=== PATIENT | male | born 1960 | race Caucasian/White ===

== ENCOUNTER 2016-07-22 09:00 | Outpatient (CLI) | payer OTHER | END 2016-07-22 09:01 | disposition home or self-care (01) | DX: Z00.00 Encounter for general adult medical examination without abnormal findings (principal); I10 Essential (primary) hypertension; E74.39 Other disorders of intestinal carbohydrate absorption; E78.5 Hyperlipidemia, unspecified; Z12.5 Encounter for screening for malignant neoplasm of prostate ==

== ENCOUNTER 2017-08-09 08:23 | Outpatient (CLI) | payer BC ==
[2017-08-09 10:27] LABS: BASOPHILS # (AUTO) 0.1 10^3/uL (0.0-0.1); BASOPHILS % (AUTO) 0.9 %; EOSINOPHILS # (AUTO) 0.2 10^3/uL (0.0-0.7); EOSINOPHILS % (AUTO) 2.6 %; HGB - HEMOGLOBIN 14.9 g/dL (14.0-18.0); LYMPHOCYTES # (AUTO) 1.7 10^3/uL (1.5-3.5); LYMPHOCYTES % (AUTO) 29.8 %; MEAN CORPUSCULAR HEMOGLOBIN 28.5 pg (27.0-31.0); MEAN CORPUSCULAR HGB CONC 33.5 g/dL (32.0-36.0); MONOCYTES # (AUTO) 0.5 10^3/uL (0.0-1.0); MONOCYTES % (AUTO) 8.6 %; NEUTROPHILS # (AUTO) 3.3 10^3/uL (1.5-6.6); NEUTROPHILS % (AUTO) 58.1 %; PLT - PLATELET COUNT 242 10^3/uL (130-450); RED BLOOD COUNT 5.24 10^6/uL (4.70-6.10); RED CELL DISTRIBUTION WIDTH 13.8 % (12.0-15.0); WHITE BLOOD COUNT 5.7 x10^3/uL (4.8-10.8)
[2017-08-09 10:53] LABS: ALBUMIN 4.4 g/dL (3.2-5.5); ALBUMIN/GLOBULIN RATIO 1.6 (1.0-2.2); ALKALINE PHOSPHATASE 86 IU/L (42-121); ALT ALANINE AMINOTRANSFERASE 31 IU/L (10-60); AST ASPARTATE AMINOTRANSFERASE 29 IU/L (10-42); BILIRUBIN,TOTAL 0.5 mg/dL (0.2-1.0); BUN - BLOOD UREA NITROGEN 14 mg/dL (6-20); CALCIUM 9.3 mg/dL (8.5-10.3); CARBON DIOXIDE - CO2 27 mmol/L (21-32); CHLORIDE 102 mmol/L (101-111); CHOL/HDL RATIO 5.3 (<5.0); CHOLESTEROL 191 mg/dL; CREATININE 0.8 mg/dL (0.6-1.2); GFR - MDRD 100 (>89); GLUCOSE 171 mg/dL (70-100); HDL CHOLESTEROL 36 mg/dL; LDL CHOLESTEROL,CALCULATED 126 mg/dL; LDL/HDL RATIO 3.5 (<3.6); SODIUM 135 mmol/L (135-145); TOTAL PROTEIN 7.1 g/dL (6.7-8.2); VLDL CHOLESTEROL 29 mg/dL
== END 2017-08-09 08:24 | disposition home or self-care (01) ==
LOC: LAB.F 08:23
PROVIDERS: ATTEND Family Medicine
DX: E74.39 Other disorders of intestinal carbohydrate absorption (principal); E78.5 Hyperlipidemia, unspecified; F90.0 Attention-deficit hyperactivity disorder, predominantly inattentive type; I10 Essential (primary) hypertension; R00.0 Tachycardia, unspecified
CPT/HCPCS: 36415; 80053; 80061; 83721; 84443; 85025

== ENCOUNTER 2017-10-05 08:28 | Outpatient (CLI) | payer BC ==
[2017-10-05 18:36] LABS: HB2 TOTAL 15.4 g/dL; HEMOGLOBIN A1C 0.73 g/dL; HEMOGLOBIN A1C % 6.5 % (4.6-6.2)
== END 2017-10-05 08:29 | disposition home or self-care (01) ==
LOC: LAB.F 08:28
PROVIDERS: ATTEND Family Medicine
DX: E74.39 Other disorders of intestinal carbohydrate absorption (principal); Z12.5 Encounter for screening for malignant neoplasm of prostate
CPT/HCPCS: 36415; 83036; 84153

== ENCOUNTER 2017-11-14 15:22 | Outpatient (CLI) | payer BC | END 2017-11-14 15:23 | disposition home or self-care (01) | LOC: SC 15:22 | PROVIDERS: ATTEND Internal Medicine Pulmonary Disease | DX: G47.33 Obstructive sleep apnea (adult) (pediatric) (principal) | CPT/HCPCS: 99203; 99212 ==

== ENCOUNTER 2018-01-12 17:05 | Outpatient (CLI) | payer BC | END 2018-01-12 23:59 | disposition home or self-care (01) | LOC: RT 17:05 | PROVIDERS: ATTEND Internal Medicine Cardiovascular Disease | DX: R01.1 Cardiac murmur, unspecified (principal) | CPT/HCPCS: 93005 ==

== ENCOUNTER 2018-01-17 08:15 | Outpatient (CLI) | payer BC | END 2018-01-17 08:16 | disposition home or self-care (01) | LOC: DI 08:15 | PROVIDERS: ATTEND Nurse Practitioner Family | DX: R01.1 Cardiac murmur, unspecified (principal) | CPT/HCPCS: 93306 ==

== ENCOUNTER 2018-10-10 20:48 | Emergency (ER) | payer BC ==
--- NOTE | 2018-10-10 21:02 | ED Physician Documentation ---
PD HPI UPPER EXT INJURY - Stated complaint Stated Complaint: GLF/LT ARM PX - Chief complaint Chief Complaint: Trauma Ext - History obtained from History obtained from: Patient - History of Present Illness Location: Left, Elbow Type of injury: Fall Where injury occurred: Home Timing - onset: How many days ago (3) Associated symptoms: Weakness, Swelling, Discolored Contributing factors: No: Anticoagulated, Prior ortho surgery, Prosthetic joint, Work related Similar symptoms before: Has not had sx before Recently seen: Not recently seen - Additonal information Additional information: fell 3 days ago while working on taking beams down on his property; lost balance and fell, not certain what he struck his LUE on, possibly on some of the beams. He had left elbow pain and swelling, bruising. These symptoms/sign have improved. He does note mild weakness with certain movements (such as using his steering wheel, putting on his seat belt). He says he came to ED tonight not because of worsening symptoms but "this is the soonest I could make it here" Review of Systems Musculoskeletal: reports: Extremity pain, Joint pain, Extremity swelling, Joint swelling. denies: Neck pain, Back pain Neurologic: denies: Numbness PD PAST MEDICAL HISTORY - Past Medical History Past Medical History: Yes - Allergies Allergies/Adverse Reactions: Allergies Allergy/AdvReac Type Severity Reaction Status Date / Time Sulfa (Sulfonamide Allergy Hives Verified 10/10/18 20:53 Antibiotics) - Living Situation Living Arrangement: reports: At home - Social History Does the pt smoke?: No PD ED PE NORMAL - Vitals Vital signs reviewed: Yes - General General: Alert and oriented X 3, No acute distress, Well developed/nourished - Neuro Neuro: No motor deficit, No sensory deficit PD ED PE EXPANDED - Extremities Extremities: Other (mild TTP left elbow, lateral aspect. FROM left elbow, wrist, shoulder. LTS intact in LUE, including FA, wrist, hand, and fingers. Strong left RA pulse) ANTWAN UE/Hands Visual: 1 - bruising, swelling Results - Vitals Vitals: Vital Signs - 24 hr 10/10/18 10/10/18 20:54 22:32 Temperature 37.0 C Heart Rate 84 62 Respiratory 16 18 Rate Blood Pressure 148/68 H 140/71 H O2 Saturation 96 97 Oxygen O2 Source Room air - Rads (name of study) left elbow xrays Radiology: Prelim report reviewed, See rad report PD MEDICAL DECISION MAKING - ED course Complexity details: reviewed results, re-evaluated patient, considered differential, d/w patient Departure - Departure Disposition: Home, Self Care Clinical Impression: Elbow injury Condition: Good Health Concerns: left elbow injury Plan of Treatment: xrays performed in emergency department. Rest, follow up as needed Care Goals: resolution of symptoms / signs Assessment: see diagnosis Instructions: ED Contusion Elbow, ED Compartment Syndrome At Risk For Follow-Up: Fernando Barber MD [Provider Admit Priv/Credential] - Discharge Date/Time: 10/10/18 22:43
--- NOTE | 2018-10-10 21:45 | XRAY Report ---
Reason: fall, left elbow pain Procedure Date: 10/10/2018 Accession Number: [id number] / [id number] Procedure: XR - Elbow 3 View LT CPT Code: FULL RESULT: EXAM: LEFT ELBOW RADIOGRAPHY EXAM DATE: 10/10/2018 09:37 PM. CLINICAL HISTORY: Fall, left elbow pain. COMPARISON: None. TECHNIQUE: 3 views. FINDINGS: Bones: Normal. No fractures or bone lesions. There is a traction enthesophyte on the olecranon at the attachment of the quadriceps tendon. There are a few ossifications within the distal quadriceps region. Joints: Normal. No effusion. No subluxation. Soft Tissues: There appears to be some soft tissue swelling along the posterior aspect of the lower aspect upper arm. IMPRESSION: 1. No evidence for fractures or dislocations. RADIA
[2018-10-10 22:33] VITALS: BP 140/71
== END 2018-10-10 22:43 | disposition home or self-care (01) ==
LOC: ED 20:48
DX: S50.02XA Contusion of left elbow, initial encounter (principal); W01.198A Fall on same level from slipping, tripping and stumbling with subsequent striking against other object, initial encounter; Y93.89 Activity, other specified; Y92.009 Unspecified place in unspecified non-institutional (private) residence as the place of occurrence of the external cause
CPT/HCPCS: 99282; 99283

== ENCOUNTER 2018-11-10 07:34 | Outpatient (CLI) | payer BC ==
[2018-11-10 07:52] LABS: BASOPHILS % (AUTO) 0.6 %; EOSINOPHILS # (AUTO) 0.2 10^3/uL (0.0-0.7); EOSINOPHILS % (AUTO) 3.8 %; HGB - HEMOGLOBIN 13.6 g/dL (14.0-18.0); LYMPHOCYTES # (AUTO) 1.6 10^3/uL (1.5-3.5); MEAN CORPUSCULAR HEMOGLOBIN 28.5 pg (27.0-31.0); MEAN CORPUSCULAR HGB CONC 31.6 g/dL (32.0-36.0); MEAN PLATELET VOLUME 8.8 fL (7.4-11.4); MONOCYTES # (AUTO) 0.5 10^3/uL (0.0-1.0); MONOCYTES % (AUTO) 10.2 %; NEUTROPHILS # (AUTO) 2.4 10^3/uL (1.5-6.6); PLT - PLATELET COUNT 239 10^3/uL (130-450); RED BLOOD COUNT 4.78 10^6/uL (4.70-6.10); WHITE BLOOD COUNT 4.7 x10^3/uL (4.8-10.8)
[2018-11-10 08:35] LABS: ALBUMIN/GLOBULIN RATIO 1.4 (1.0-2.2); BILIRUBIN,TOTAL 0.6 mg/dL (0.2-1.0); CALCIUM 9.2 mg/dL (8.5-10.3); CREATININE 0.7 mg/dL (0.6-1.2); TOTAL PROTEIN 6.9 g/dL (6.7-8.2)
[2018-11-10 09:06] LABS: HB2 TOTAL 14.2 g/dL; HEMOGLOBIN A1C 0.7 g/dL; HEMOGLOBIN A1C % 6.7 % (4.6-6.2)
== END 2018-11-10 07:35 | disposition home or self-care (01) ==
LOC: RT 07:34
PROVIDERS: ATTEND Orthopaedic Surgery Sports Medicine
DX: Z01.818 Encounter for other preprocedural examination (principal); S46.312D Strain of muscle, fascia and tendon of triceps, left arm, subsequent encounter; S46.302D Unspecified injury of muscle, fascia and tendon of triceps, left arm, subsequent encounter; S46.322D Laceration of muscle, fascia and tendon of triceps, left arm, subsequent encounter
CPT/HCPCS: 36415; 80053; 83036; 85025; 93005

== ENCOUNTER 2018-11-15 | Day surgery (SDC) | payer BC | END 2018-11-15 07:57 | disposition home or self-care (01) | PROC: 0LM40ZZ Reattachment of Left Upper Arm Tendon, Open Approach (ICD-10-PCS; principal; 2018-11-15) | DX: S46.392A Other injury of muscle, fascia and tendon of triceps, left arm, initial encounter (principal); X58.XXXA Exposure to other specified factors, initial encounter; I10 Essential (primary) hypertension; E11.9 Type 2 diabetes mellitus without complications; G47.30 Sleep apnea, unspecified; R01.1 Cardiac murmur, unspecified; Z84.89 Family history of other specified conditions; E66.3 Overweight; Z68.34 Body mass index [BMI] 34.0-34.9, adult; E78.00 Pure hypercholesterolemia, unspecified | CPT/HCPCS: 24342; A9270; C1713; J0690; J7120 ==

== ENCOUNTER 2018-12-26 07:51 | Outpatient (CLI) | payer BC ==
--- NOTE | 2018-12-26 17:22 | MRI Report ---
Reason: MASS OF RIGHT KNEE JOINT Procedure Date: 12/26/2018 Accession Number: [id number] / [id number] Procedure: MRI - Knee RT W/O CPT Code: FULL RESULT: EXAM: RIGHT KNEE MRI WITHOUT CONTRAST EXAM DATE: 12/26/2018 08:26 AM. CLINICAL HISTORY: Mass of right knee joint. No prior surgery. Knee pain. COMPARISON: KNEE 3 VIEW RT 12/11/2018 3:39 PM. TECHNIQUE: Multiplanar, multisequence T1-weighted and fluid-sensitive sequences of the knee without contrast. Other: None. FINDINGS: Cruciate ligaments: The anterior and posterior cruciate ligaments appear intact. Medial meniscus: Blunting at the free margin of the body. Possible tiny horizontal tear at the body-posterior horn junction. Large lobulated cyst located superficial to the medial collateral ligament measures up to 4.3 x 1.7 cm transverse and 5.2 cm craniocaudad. Suspicious for meniscal cyst. This could also represent ganglion cyst associated with distal semimembranosus. Collateral ligaments: The medial and fibular collateral ligaments appear intact. Bones and articular surfaces: Mild cartilage thinning, irregularity and fissuring in all compartments, most pronounced in the medial and patellofemoral compartments. Focal cartilage fissuring and partial-thickness defect at the weightbearing lateral femoral condyle. No significant joint effusion. Extensor mechanism: The patellar tendon and quadriceps insertion appear intact. IMPRESSION: No MRI abnormalities in the knee. RADIA
== END 2018-12-26 07:52 | disposition home or self-care (01) ==
LOC: DI 07:51
PROVIDERS: ATTEND Orthopaedic Surgery Sports Medicine
DX: M25.861 Other specified joint disorders, right knee (principal)

== ENCOUNTER 2019-04-24 08:00 | Outpatient (CLI) | payer BC, OTHER ==
[2019-04-24 17:43] LABS: ALBUMIN 4.2 g/dL (3.2-5.5); ALBUMIN/GLOBULIN RATIO 1.6 (1.0-2.2); ALKALINE PHOSPHATASE 85 IU/L (42-121); ALT ALANINE AMINOTRANSFERASE 29 IU/L (10-60); AST ASPARTATE AMINOTRANSFERASE 28 IU/L (10-42); BILIRUBIN,TOTAL 0.6 mg/dL (0.2-1.0); BUN - BLOOD UREA NITROGEN 15 mg/dL (6-20); CALCIUM 8.9 mg/dL (8.5-10.3); CARBON DIOXIDE - CO2 26 mmol/L (21-32); CHLORIDE 102 mmol/L (101-111); CHOL/HDL RATIO 5.3 (<5.0); CHOLESTEROL 184 mg/dL; CREATININE 0.8 mg/dL (0.6-1.2); GFR - MDRD 100 (>89); GLUCOSE 152 mg/dL (70-100); HDL CHOLESTEROL 35 mg/dL; LDL CHOLESTEROL,CALCULATED 81 mg/dL; LDL/HDL RATIO 2.3 (<3.6); SODIUM 136 mmol/L (135-145); TOTAL PROTEIN 6.8 g/dL (6.7-8.2); VLDL CHOLESTEROL 68 mg/dL
[2019-04-24 18:19] LABS: HB2 TOTAL 14.4 g/dL; HEMOGLOBIN A1C 0.85 g/dL; HEMOGLOBIN A1C % 7.6 % (4.6-6.2)
== END 2019-04-24 23:59 | disposition home or self-care (01) ==
LOC: LAB.S 08:00
PROVIDERS: ATTEND Internal Medicine
DX: Z12.5 Encounter for screening for malignant neoplasm of prostate (principal); E78.5 Hyperlipidemia, unspecified; E11.9 Type 2 diabetes mellitus without complications
CPT/HCPCS: 36415; 80053; 80061; 83036; 83721; 84153

== ENCOUNTER 2020-01-24 10:48 | Outpatient (CLI) | payer OTHER ==
--- NOTE | 2020-01-24 17:52 | XRAY Report ---
PROCEDURE: Lumbar Spine 2 View INDICATIONS: BACK PAIN TECHNIQUE: 3 views of the lumbar spine were acquired. COMPARISON: None. FINDINGS: Bones: 5 [id number] vertebrae are present. There is a mild levoscoliosis of the thoracolumbar spine centered at L3. There is minimal retrolisthesis at L1-L2 and L2-L3. Mild right-sided disc space narrowing is demonstrated in the mid lumbar spine. There is also mild facet arthropathy with a left- sided predominance in the lower lumbar spine. No vertebral body compression fractures. No suspicious bony lesions. Soft tissues: Overlying bowel gas pattern is normal. No suspicious soft tissue calcifications. IMPRESSION: 1. Levoscoliosis of the thoracolumbar spine centered at L3. 2. Mild degenerative disc disease in the mid lumbar spine as well as mild facet arthropathy in the lo wer lumbar spine. 3. Minimal retrolisthesis in the upper lumbar spine. Reviewed by: Edd Erickson MD on 01/24/2020 4:50 PM ELLIS Approved by: Edd Erickson MD on 01/24/2020 4:50 PM ELLIS Station ID: [id number]
== END 2020-01-24 10:49 | disposition home or self-care (01) ==
LOC: DI.S 10:48
PROVIDERS: ATTEND Internal Medicine
DX: M51.36 Other intervertebral disc degeneration, lumbar region (principal); M47.816 Spondylosis without myelopathy or radiculopathy, lumbar region; M43.16 Spondylolisthesis, lumbar region
CPT/HCPCS: 72100

== ENCOUNTER 2020-06-17 08:34 | Outpatient (CLI) | payer OTHER ==
[2020-06-17 15:02] LABS: BASOPHILS % (AUTO) 0.5 %; EOSINOPHILS # (AUTO) 0.1 10^3/uL (0.0-0.7); EOSINOPHILS % (AUTO) 0.8 %; HCT - HEMATOCRIT 47.4 % (42.0-52.0); HGB - HEMOGLOBIN 14.9 g/dL (14.0-18.0); LYMPHOCYTES # (AUTO) 0.4 10^3/uL (1.5-3.5); LYMPHOCYTES % (AUTO) 7.1 %; MEAN CORPUSCULAR HEMOGLOBIN 29.1 pg (27.0-31.0); MEAN CORPUSCULAR HGB CONC 31.4 g/dL (32.0-36.0); MEAN CORPUSCULAR VOLUME 92.6 fL (80.0-94.0); MEAN PLATELET VOLUME 9.4 fL (7.4-11.4); MONOCYTES # (AUTO) 0.5 10^3/uL (0.0-1.0); MONOCYTES % (AUTO) 8.9 %; NEUTROPHILS % (AUTO) 82.4 %; PLT - PLATELET COUNT 290 10^3/uL (130-450); RED BLOOD COUNT 5.12 10^6/uL (4.70-6.10); RED CELL DISTRIBUTION WIDTH 13.2 % (12.0-15.0); WHITE BLOOD COUNT 6.1 x10^3/uL (4.8-10.8)
[2020-06-17 15:31] LABS: ALBUMIN 4.6 g/dL (3.2-5.5); ALBUMIN/GLOBULIN RATIO 1.8 (1.0-2.2); ALKALINE PHOSPHATASE 66 IU/L (42-121); ALT ALANINE AMINOTRANSFERASE 37 IU/L (10-60); AST ASPARTATE AMINOTRANSFERASE 29 IU/L (10-42); BUN - BLOOD UREA NITROGEN 16 mg/dL (6-20); CALCIUM 9.4 mg/dL (8.5-10.3); CARBON DIOXIDE - CO2 27 mmol/L (21-32); CHLORIDE 101 mmol/L (101-111); CHOLESTEROL 157 mg/dL; CREATININE 0.7 mg/dL (0.6-1.2); GFR - MDRD 116 (>89); GLUCOSE 110 mg/dL (70-100); HDL CHOLESTEROL 52 mg/dL; LDL CHOLESTEROL,CALCULATED 89 mg/dL; LDL/HDL RATIO 1.7 (<3.6); POTASSIUM 4.6 mmol/L (3.5-5.0); SODIUM 136 mmol/L (135-145); TOTAL PROTEIN 7.1 g/dL (6.7-8.2); TRIGLYCERIDES 81 mg/dL; VLDL CHOLESTEROL 16 mg/dL
[2020-06-17 20:07] LABS: ESTIMATED AVERAGE GLUCOSE 140 mg/dL (70-100); HEMOGLOBIN A1c% 6.5 % (4.27-6.07)
== END 2020-06-17 08:35 | disposition home or self-care (01) ==
LOC: LAB.S 08:34
PROVIDERS: ATTEND Internal Medicine
DX: I10 Essential (primary) hypertension (principal); E11.9 Type 2 diabetes mellitus without complications; E78.5 Hyperlipidemia, unspecified
CPT/HCPCS: 36415; 80053; 80061; 83036; 83721; 85025

== ENCOUNTER 2020-07-14 15:30 | Outpatient (CLI) | payer OTHER ==
--- NOTE | 2020-07-20 21:36 | SLEEP CARE CONSULTATION ---
Information from patient questionnaire entered by Kyaw Aiken. I have reviewed and concur with the information entered by Kyaw Aiken. This document represents the service I personally performed and the decisions made by me, Rae Mckeon MD, [facility]. History of Present Illness Service Date and Time: 07/14/2020 1530 Previous diagnosis: Very Severe, Obstructive Sleep Apnea-Hypopnea Syndrome AHI: 64 Reason for follow up: annual (Last seen 10/2017) Equipment type: BiPAP Equipment obtained from: [employer] Mask style: Nasal Year and Where: 2006 [facility] HPI additional information: HPI: Mr. Almonte was diagnosed to have very severe complex sleep apnea-hypopnea syndrome and returns today for follow up of BiPAP S/T therapy. The patient purchased the device from [employer] and was fitted with a nasal mask. He uses the device nightly and all through the night. The compliance report shows that he uses the device 88 nights out of the past 90 nights, averaging 7 (was 6.5 3 years ago) hours a night. He complains of insomnia but no particular problem with the device such as soreness on the face, dry nose, epistaxis, nasal congestion or headache. He thinks that the pressure of 11/4 cmH2O with backup respiratory rate of 10 is comfortable. On the BiPAP therapy he notices improvement in his sleep quality, and that he wakes up feeling fresher in the morning and more awake/alert during the day. His notices no snore at all. [place] Sleepiness Scale score is 11. The average residual AHI is 2.4 ; and average time in large leak is 2.4 L/minute. CPAP Compliance Data - Data Reviewed with Patient Average duration of nightly device use: 7 h 2 min Compliance rate %: 93 Current pressure setting (cmH2O): 11/7 Average residual AHI: 2.5 Subjective Missed days of use due to: reports: travel Patient concerns: reports: nasal congestion Current pressure setting perceived as: comfortable Initial [place] Sleepiness Scale score: 9 (in 2018) Current [place] Sleepiness Scale score: 11 Allergies and Home Medications Drug allergies reviewed: Yes Home medication list reviewed: Yes Review of Systems Review of systems same as previous: Yes Physical Exam Height: 6 ft 1 in Weight: 235 lb Body Mass Index: 30.9 BMI Classification: Obese Impression and Plan IMPRESSION: 1. Complex Sleep Apnea-Hypopnea Syndrome, very severe (AHI was 64 in 2008 at [facility]), with the patient continuing to do well on the BiPAP S/T therapy. He has excellent compliance and significant clinical benefits. The current pressure appears effective and comfortable. Overall, he is very satisfied with treatment and plans to continue with it long-term. No adjustment is necessary today. 2. Insomnia, appears to be due to anxiety which developed about 3 months ago. His primary care provider prescribed him Ambien and Xanax. I advised to him take Ambien for insomnia and Xanax for anxiety. His sleep habits have not changed the the BiPAP is logging hour or usage on the average. PLAN: 1. Continue with BiPAP S/T at the current setting. 2. Prescription made for supplies through [facility]. 3. Try to lose weight. 4. Return in one year for follow up or earlier if there is any problem with the treatment. Follow up recommended for: Weight management Visit Type: In Office Time Spent with Patient (minutes): 15 Provider Statement: I spent 100% of the Face to Face Visit with the patient with greater than 50% spent counseling the patient and coordination of care.
== END 2020-07-14 15:31 | disposition home or self-care (01) ==
LOC: SC 15:30
PROVIDERS: ATTEND Internal Medicine Pulmonary Disease
DX: G47.33 Obstructive sleep apnea (adult) (pediatric) (principal); G47.00 Insomnia, unspecified; E66.9 Obesity, unspecified; Z68.30 Body mass index [BMI] 30.0-30.9, adult
CPT/HCPCS: 99212

== ENCOUNTER 2020-11-19 16:48 | Outpatient (CLI) | payer OTHER ==
[2020-11-19 20:11] LABS: BASOPHILS # (AUTO) 0.1 10^3/uL (0.0-0.1); EOSINOPHILS # (AUTO) 0.1 10^3/uL (0.0-0.7); EOSINOPHILS % (AUTO) 2.2 %; HCT - HEMATOCRIT 46.5 % (42.0-52.0); HGB - HEMOGLOBIN 14.9 g/dL (14.0-18.0); LYMPHOCYTES # (AUTO) 1.7 10^3/uL (1.5-3.5); LYMPHOCYTES % (AUTO) 28.9 %; MEAN CORPUSCULAR HEMOGLOBIN 28.5 pg (27.0-31.0); MEAN CORPUSCULAR VOLUME 88.9 fL (80.0-94.0); MEAN PLATELET VOLUME 9.8 fL (7.4-11.4); MONOCYTES # (AUTO) 0.6 10^3/uL (0.0-1.0); MONOCYTES % (AUTO) 10.3 %; NEUTROPHILS # (AUTO) 3.3 10^3/uL (1.5-6.6); NEUTROPHILS % (AUTO) 57.1 %; PLT - PLATELET COUNT 271 10^3/uL (130-450); RED BLOOD COUNT 5.23 10^6/uL (4.70-6.10); RED CELL DISTRIBUTION WIDTH 13.8 % (12.0-15.0); WHITE BLOOD COUNT 5.8 x10^3/uL (4.8-10.8)
[2020-11-19 20:19] LABS: ALBUMIN 4.8 g/dL (3.2-5.5); ALBUMIN/GLOBULIN RATIO 1.9 (1.0-2.2); BILIRUBIN,TOTAL 0.8 mg/dL (0.2-1.0); CALCIUM 9.6 mg/dL (8.5-10.3); CREATININE 0.8 mg/dL (0.6-1.2); POTASSIUM 4.2 mmol/L (3.5-5.0); TOTAL PROTEIN 7.3 g/dL (6.7-8.2)
[2020-11-19 20:38] LABS: ESTIMATED AVERAGE GLUCOSE 146 mg/dL (70-100); HEMOGLOBIN A1c% 6.7 % (4.27-6.07)
== END 2020-11-19 16:49 | disposition home or self-care (01) ==
LOC: LAB.S 16:48
PROVIDERS: ATTEND Internal Medicine
DX: I10 Essential (primary) hypertension (principal); E11.9 Type 2 diabetes mellitus without complications; R53.83 Other fatigue
CPT/HCPCS: 36415; 80053; 81599; 83036; 84402; 84403; 85025

== ENCOUNTER 2020-12-10 11:00 | Outpatient (CLI) | payer OTHER ==
--- NOTE | 2020-12-10 14:38 | XRAY Report ---
PROCEDURE: Finger(s) RT INDICATIONS: SPRAIN OF RIGHT MIDDLE FINGER TECHNIQUE: AP view of the hand and 2 views of the right middle finger. COMPARISON: None. FINDINGS: Bones: No acute fracture or dislocation. The DIP joints have joint space narrowing and degenerative c hanges. The third DIP joint has small osteophytes. Soft tissues: No suspicious soft tissue calcifications. IMPRESSION: 1. Degenerative changes of the radioulnar joint and remote ulnar styloid fracture. 2. Degenerative changes of the DIP joint of the middle finger likely osteoarthritis. 3. No acute abnormality. Reviewed by: Bradly Maciel on 12/10/2020 2:37 PM PDT Approved by: Bradly Maciel on 12/10/2020 2:37 PM PDT Station ID: [id number]
== END 2020-12-10 23:59 | disposition home or self-care (01) ==
LOC: DI.S 11:00
PROVIDERS: ATTEND Emergency Medicine
DX: S63.692A Other sprain of right middle finger, initial encounter (principal); S52.611D Displaced fracture of right ulna styloid process, subsequent encounter for closed fracture with routine healing; M19.021 Primary osteoarthritis, right elbow; M19.041 Primary osteoarthritis, right hand

== ENCOUNTER 2021-05-29 08:29 | Outpatient (CLI) | payer OTHER ==
[2021-05-29 15:46] LABS: BASOPHILS # (AUTO) 0.1 10^3/uL (0.0-0.1); BASOPHILS % (AUTO) 1.4 %; EOSINOPHILS # (AUTO) 0.1 10^3/uL (0.0-0.7); EOSINOPHILS % (AUTO) 2.5 %; HCT - HEMATOCRIT 44.9 % (42.0-52.0); HGB - HEMOGLOBIN 14.4 g/dL (14.0-18.0); LYMPHOCYTES # (AUTO) 1.4 10^3/uL (1.5-3.5); LYMPHOCYTES % (AUTO) 31.2 %; MEAN CORPUSCULAR HEMOGLOBIN 28.8 pg (27.0-31.0); MEAN CORPUSCULAR HGB CONC 32.1 g/dL (32.0-36.0); MEAN CORPUSCULAR VOLUME 89.8 fL (80.0-94.0); MEAN PLATELET VOLUME 9.3 fL (7.4-11.4); MONOCYTES # (AUTO) 0.5 10^3/uL (0.0-1.0); NEUTROPHILS # (AUTO) 2.3 10^3/uL (1.5-6.6); NEUTROPHILS % (AUTO) 52.2 %; PLT - PLATELET COUNT 263 10^3/uL (130-450); RED CELL DISTRIBUTION WIDTH 13.2 % (12.0-15.0); WHITE BLOOD COUNT 4.4 x10^3/uL (4.8-10.8)
[2021-05-29 22:57] LABS: ESTIMATED AVERAGE GLUCOSE 171 mg/dL (70-100); HEMOGLOBIN A1c% 7.6 % (4.27-6.07)
[2021-05-29 23:06] LABS: ALBUMIN 4.3 g/dL (3.2-5.5); ALBUMIN/GLOBULIN RATIO 1.9 (1.0-2.2); ALKALINE PHOSPHATASE 83 IU/L (42-121); ALT ALANINE AMINOTRANSFERASE 24 IU/L (10-60); AST ASPARTATE AMINOTRANSFERASE 25 IU/L (10-42); BILIRUBIN,TOTAL 0.7 mg/dL (0.2-1.0); BUN - BLOOD UREA NITROGEN 19 mg/dL (6-20); CARBON DIOXIDE - CO2 25 mmol/L (21-32); CHLORIDE 102 mmol/L (101-111); CHOL/HDL RATIO 4.6 (<5.0); CHOLESTEROL 172 mg/dL; CREATININE 0.8 mg/dL (0.6-1.2); GFR - MDRD 99 (>89); GLUCOSE 140 mg/dL (70-100); HDL CHOLESTEROL 37 mg/dL; LDL CHOLESTEROL,CALCULATED 110 mg/dL; POTASSIUM 4.5 mmol/L (3.5-5.0); SODIUM 136 mmol/L (135-145); TOTAL PROTEIN 6.6 g/dL (6.7-8.2); TRIGLYCERIDES 124 mg/dL; VLDL CHOLESTEROL 25 mg/dL
== END 2021-05-29 08:30 | disposition home or self-care (01) ==
LOC: LAB.S 08:29
PROVIDERS: ATTEND Internal Medicine
DX: I10 Essential (primary) hypertension (principal); E78.5 Hyperlipidemia, unspecified; E11.9 Type 2 diabetes mellitus without complications; Z12.5 Encounter for screening for malignant neoplasm of prostate
CPT/HCPCS: 36415; 80053; 80061; 83036; 83721; 84153; 85025

== ENCOUNTER 2021-06-10 12:00 | Outpatient (CLI) | payer OTHER ==
[2021-06-10 16:12] LABS: THYROID STIMULATING HORMONE 3.34 uIU/mL (0.34-5.60)
== END 2021-06-10 12:01 | disposition home or self-care (01) ==
LOC: LAB.S 12:00
PROVIDERS: ATTEND Internal Medicine
DX: R63.5 Abnormal weight gain (principal)
CPT/HCPCS: 36415; 84443

== ENCOUNTER 2022-02-18 08:00 | Outpatient (CLI) | payer OTHER ==
--- NOTE | 2022-02-18 16:34 | XRAY Report ---
PROCEDURE: Elbow 3 View RT INDICATIONS: RIGHT ELBOW CONTUSION TECHNIQUE: 3 views of the elbow were acquired. COMPARISON: None FINDINGS: Bones: No fractures or dislocations. Prominent enthesophyte formation and proximal olecranon near t riceps tendon insertion is seen. No suspicious bony lesions. Soft tissues: There is soft tissue swelling over dorsum of right elbow. No elbow joint effusion. Sma ll calcification is seen in the posterior elbow soft tissue at the level of distal humeral shaft whic h may represent sequela from remote healed injury. IMPRESSION: Dorsal elbow soft tissue swelling. No acute elbow fracture or dislocation. No significant joint effus ion. Prominent dorsal olecranon enthesophyte formation. Reviewed by: Ever Barreto MD on 02/18/2022 4:32 PM PDT Approved by: Ever Barreto MD on 02/18/2022 4:32 PM PDT Station ID: [id number]
== END 2022-02-18 08:01 | disposition home or self-care (01) ==
LOC: DI.S 08:00
PROVIDERS: ATTEND Physician Assistant Medical
DX: S50.01XA Contusion of right elbow, initial encounter (principal); R22.31 Localized swelling, mass and lump, right upper limb; M25.721 Osteophyte, right elbow

== ENCOUNTER 2022-05-28 08:39 | Outpatient (CLI) | payer OTHER ==
[2022-05-28 14:28] LABS: BASOPHILS # (AUTO) 0.1 10^3/uL (0.0-0.1); BASOPHILS % (AUTO) 1.2 %; EOSINOPHILS # (AUTO) 0.2 10^3/uL (0.0-0.7); EOSINOPHILS % (AUTO) 4.5 %; HCT - HEMATOCRIT 45.9 % (42.0-52.0); HGB - HEMOGLOBIN 14.4 g/dL (14.0-18.0); LYMPHOCYTES # (AUTO) 1.6 10^3/uL (1.5-3.5); LYMPHOCYTES % (AUTO) 31.6 %; MEAN CORPUSCULAR HEMOGLOBIN 28.1 pg (27.0-31.0); MEAN CORPUSCULAR HGB CONC 31.4 g/dL (32.0-36.0); MEAN CORPUSCULAR VOLUME 89.6 fL (80.0-94.0); MEAN PLATELET VOLUME 9.4 fL (7.4-11.4); MONOCYTES # (AUTO) 0.5 10^3/uL (0.0-1.0); MONOCYTES % (AUTO) 9.4 %; NEUTROPHILS # (AUTO) 2.7 10^3/uL (1.5-6.6); NEUTROPHILS % (AUTO) 52.9 %; PLT - PLATELET COUNT 267 10^3/uL (130-450); RED BLOOD COUNT 5.12 10^6/uL (4.70-6.10); RED CELL DISTRIBUTION WIDTH 13.8 % (12.0-15.0); WHITE BLOOD COUNT 5.1 x10^3/uL (4.8-10.8)
[2022-05-28 15:59] LABS: ALBUMIN 4.4 g/dL (3.2-5.5); ALBUMIN/GLOBULIN RATIO 1.6 (1.0-2.2); ALKALINE PHOSPHATASE 81 IU/L (42-121); ALT ALANINE AMINOTRANSFERASE 24 IU/L (10-60); AST ASPARTATE AMINOTRANSFERASE 25 IU/L (10-42); BILIRUBIN,TOTAL 0.8 mg/dL (0.2-1.0); BUN - BLOOD UREA NITROGEN 16 mg/dL (6-20); CALCIUM 9.7 mg/dL (8.5-10.3); CARBON DIOXIDE - CO2 25 mmol/L (21-32); CHLORIDE 102 mmol/L (101-111); CHOL/HDL RATIO 5.5 (<5.0); CHOLESTEROL 238 mg/dL; CREATININE 0.7 mg/dL (0.6-1.2); GFR - MDRD 115 (>89); GLUCOSE 141 mg/dL (70-100); HDL CHOLESTEROL 43 mg/dL; LDL CHOLESTEROL,CALCULATED 171 mg/dL; POTASSIUM 4.6 mmol/L (3.5-5.0); SODIUM 138 mmol/L (135-145); TOTAL PROTEIN 7.1 g/dL (6.7-8.2); TRIGLYCERIDES 119 mg/dL; VLDL CHOLESTEROL 24 mg/dL
[2022-05-28 16:00] LABS: THYROID STIMULATING HORMONE 3.2 uIU/mL (0.34-5.60)
== END 2022-05-28 08:40 | disposition home or self-care (01) ==
LOC: LAB.S 08:39
PROVIDERS: ATTEND Registered Nurse
DX: I10 Essential (primary) hypertension (principal); E11.9 Type 2 diabetes mellitus without complications; E78.5 Hyperlipidemia, unspecified; Z13.5 Encounter for screening for eye and ear disorders
CPT/HCPCS: 36415; 80053; 80061; 83721; 84153; 84443; 85025

== ENCOUNTER 2022-06-21 07:04 | Outpatient (CLI) | payer OTHER ==
--- NOTE | 2022-06-21 09:38 | MRI Report ---
PROCEDURE: SHOULDER WO - RT INDICATIONS: RIGHT MEDIAL EPICONDYLITIS TECHNIQUE: Noncontrast oblique coronal T2 fast spin echo with fat saturation, oblique sagittal T1 spin echo and T2 fast spin echo with fat saturation, axial T1 spin echo and T2 fast spin echo with fat saturation a nd 3-D gradient echo through the shoulder. COMPARISON: None. FINDINGS: Image quality: Excellent. Rotator cuff: There is full-thickness tearing of the supraspinatus tendon at the anterior footprint m easuring approximately 6 mm in anteroposterior dimension with minimal proximal tendon retraction david uring 5 mm. Moderate supraspinatus and infraspinatus tendinosis. The teres minor and subscapularis te ndons are intact. The rotator cuff musculature is normal in bulk. Bones and bursae: No acute trabecular bone injury or fracture. Chronic traction cystic changes are se en at the posterosuperior humeral head and greater tuberosity near the rotator cuff tendon insertions . There is moderate partial-thickness cartilage irregularity in the glenohumeral joint with degenerat sraa spurring in the glenoid rim. Moderate degenerative changes are seen in the acromioclavicular join t with multiple cystic changes and edema and marginal osteophyte formation. There is a small amount o f subacromial/subdeltoid bursal fluid. No significant glenohumeral joint effusion. Capsule and soft tissues: No displaced labral tear is seen. There is complete tearing and distal retr action of the proximal biceps long head tendon. There is partial effacement of the fat signal in the rotator interval. There is mild thickening of the anterior band of the inferior glenohumeral ligament IMPRESSION: 1.Focal full-thickness tearing of the supraspinatus tendon and the anterior footprint measuring 6 mm in anteroposterior dimension with minimal proximal tendon retraction measuring 5 mm. Moderate suprasp inatus and infraspinatus tendinosis. 2.Complete tearing and distal retraction of the biceps long head tendon. 3.Grade 2-3 chondromalacia in the glenohumeral joint. 4.Moderate acromioclavicular joint osteoarthrosis. 5.Small subacromial/subdeltoid bursal effusion or mild bursitis. 6.Partial effacement of the rotator interval fat and mild thickening of the inferior glenohumeral lig ament are nonspecific, but can be seen in the setting of the clinical syndrome of adhesive capsulitis . Reviewed by: Herber Luke MD on 06/21/2022 9:37 AM PST Approved by: Herber Luke MD on 06/21/2022 9:37 AM PST Station ID: [id number]
== END 2022-06-21 07:05 | disposition home or self-care (01) ==
LOC: DI 07:04
PROVIDERS: ATTEND Registered Nurse
DX: M75.121 Complete rotator cuff tear or rupture of right shoulder, not specified as traumatic (principal); S46.121A Laceration of muscle, fascia and tendon of long head of biceps, right arm, initial encounter; M94.211 Chondromalacia, right shoulder; M19.011 Primary osteoarthritis, right shoulder; R93.6 Abnormal findings on diagnostic imaging of limbs

== ENCOUNTER 2022-06-24 07:05 | Outpatient (CLI) | payer OTHER ==
--- NOTE | 2022-06-24 11:45 | MRI Report ---
PROCEDURE: ELBOW WO - RT INDICATIONS: TRICEPS TENDINITIS TECHNIQUE: Noncontrast coronal proton density fast spin echo and T2 fast spin echo with fat saturation, axial an d sagittal T1 spin echo and T2 fast spin echo with fat saturation through the elbow. COMPARISON: Right elbow radiographs 02/18/2022. FINDINGS: Image quality: Excellent. Lateral structures: The lateral ulnar collateral ligament and radial collateral ligament both appear intact. Moderate thickening and low-grade partial intrasubstance tearing of the common extensor tend on at the origin. Medial structures: The ulnar collateral ligament appears intact. The overlying common flexor tendon appears normal. The ulnar nerve appears normal in size and signal within the cubital tunnel. Anterior structures: Mild insertional tendinosis of the distal biceps tendon. The distal brachialis t endon insertion is intact. No bicipitoradial bursal fluid. The median and radial neurovascular bundl es appear normal; no focal muscle atrophy to suggest nerve impingement. Posterior structures: There is heterogeneous moderate grade partial tearing of the tendinous portion of the distal triceps insertion. The direct muscular insertions of the medial head fibers onto the po sterior olecranon appear intact. A mildly edematous olecranon enthesophyte is present. A small amount of fluid is seen overlying the olecranon. Bone and cartilage: No bone marrow contusions or fractures. No osteochondral injuries. Small elbow effusion. IMPRESSION: 1.Moderate to high-grade partial tearing of the tendinous portion of the distal triceps insertion. Sm all mildly edematous posterior olecranon enthesophyte is seen. 2.Moderate tendinosis and low-grade partial intrasubstance tearing of the common extensor tendon at t he origin. 3.Mild insertional tendinosis of the distal biceps tendon. Reviewed by: Herber Luke MD on 06/24/2022 11:44 AM PST Approved by: Herber Luke MD on 06/24/2022 11:44 AM PST Station ID: [id number]
== END 2022-06-24 07:06 | disposition home or self-care (01) ==
LOC: DI 07:05
PROVIDERS: ATTEND Registered Nurse
DX: M77.01 Medial epicondylitis, right elbow (principal); R29.898 Other symptoms and signs involving the musculoskeletal system; M75.81 Other shoulder lesions, right shoulder; S46.311A Strain of muscle, fascia and tendon of triceps, right arm, initial encounter; S56.511A Strain of other extensor muscle, fascia and tendon at forearm level, right arm, initial encounter; M67.821 Other specified disorders of synovium, right elbow

== ENCOUNTER 2022-07-08 09:45 | Outpatient (CLI) | payer OTHER ==
--- NOTE | 2022-07-09 09:04 | XRAY Report ---
PROCEDURE: Shoulder 3 View RT INDICATIONS: RIGHT SHOULDER PAIN TECHNIQUE: 4 views of the shoulder were acquired. COMPARISON: MRI right shoulder, 06/21/2022. FINDINGS: Bones: No fractures or dislocations. No suspicious bony lesions. Moderate acromioclavicular and mil d glenohumeral joint degeneration. Visualized ribs appear intact. Soft tissues: No suspicious soft tissue calcifications. IMPRESSION: Degenerative joint disease. Reviewed by: Chad Brenner MD on 07/09/2022 9:03 AM PDT Approved by: Chad Brenner MD on 07/09/2022 9:03 AM PDT Station ID: [id number]
== END 2022-07-08 23:59 | disposition home or self-care (01) ==
LOC: DI.WOS 09:45
PROVIDERS: ATTEND Orthopaedic Surgery
DX: M19.011 Primary osteoarthritis, right shoulder (principal)

== ENCOUNTER 2022-09-17 12:12 | Outpatient (CLI) | payer OTHER ==
[2022-09-17 15:36] LABS: BUN - BLOOD UREA NITROGEN 16 mg/dL (6-20); CALCIUM 9.1 mg/dL (8.5-10.3); CARBON DIOXIDE - CO2 25 mmol/L (21-32); CHLORIDE 104 mmol/L (101-111); CHOLESTEROL 244 mg/dL; CREATININE 0.8 mg/dL (0.6-1.2); GFR - MDRD 99 (>89); GLUCOSE 120 mg/dL (70-100); HDL CHOLESTEROL 49 mg/dL; LDL CHOLESTEROL,CALCULATED 167 mg/dL; LDL/HDL RATIO 3.4 (<3.6); POTASSIUM 4.1 mmol/L (3.5-5.0); SODIUM 140 mmol/L (135-145); TRIGLYCERIDES 139 mg/dL; VLDL CHOLESTEROL 28 mg/dL
[2022-09-17 21:47] LABS: ESTIMATED AVERAGE GLUCOSE 160 mg/dL (70-100); HEMOGLOBIN A1c% 7.2 % (4.27-6.07)
== END 2022-09-17 12:13 | disposition home or self-care (01) ==
LOC: LAB.S 12:12
PROVIDERS: ATTEND Registered Nurse
DX: E78.5 Hyperlipidemia, unspecified (principal); E11.9 Type 2 diabetes mellitus without complications
CPT/HCPCS: 36415; 80048; 80061; 83036; 83721

== ENCOUNTER 2023-06-28 09:06 | Outpatient (CLI) | payer OTHER ==
[2023-06-28 15:18] LABS: BASOPHILS # (AUTO) 0.1 10^3/uL (0.0-0.1); BASOPHILS % (AUTO) 1.2 %; EOSINOPHILS # (AUTO) 0.1 10^3/uL (0.0-0.7); HCT - HEMATOCRIT 45.4 % (42.0-52.0); LYMPHOCYTES # (AUTO) 1.6 10^3/uL (1.5-3.5); LYMPHOCYTES % (AUTO) 35.7 %; MEAN CORPUSCULAR HEMOGLOBIN 27.6 pg (27.0-31.0); MEAN CORPUSCULAR HGB CONC 30.8 g/dL (32.0-36.0); MEAN CORPUSCULAR VOLUME 89.4 fL (80.0-94.0); MEAN PLATELET VOLUME 9.6 fL (7.4-11.4); MONOCYTES # (AUTO) 0.4 10^3/uL (0.0-1.0); MONOCYTES % (AUTO) 10.1 %; NEUTROPHILS # (AUTO) 2.2 10^3/uL (1.5-6.6); NEUTROPHILS % (AUTO) 49.5 %; PLT - PLATELET COUNT 255 10^3/uL (130-450); RED BLOOD COUNT 5.08 10^6/uL (4.70-6.10); RED CELL DISTRIBUTION WIDTH 13.6 % (12.0-15.0); WHITE BLOOD COUNT 4.3 x10^3/uL (4.8-10.8)
[2023-06-28 16:29] LABS: CHOL/HDL RATIO 5.1 (<5.0); CHOLESTEROL 223 mg/dL; HDL CHOLESTEROL 44 mg/dL; LDL CHOLESTEROL,CALCULATED 159 mg/dL; LDL/HDL RATIO 3.6 (<3.6); TRIGLYCERIDES 101 mg/dL (48-352); VLDL CHOLESTEROL 20 mg/dL
[2023-06-28 16:37] LABS: ESTIMATED AVERAGE GLUCOSE 131 mg/dL (70-100); HEMOGLOBIN A1c% 6.2 % (4.27-6.07)
[2023-06-28 17:08] LABS: ALBUMIN 4.5 g/dL (3.2-5.5); ALBUMIN/GLOBULIN RATIO 1.9 (1.0-2.2); ALKALINE PHOSPHATASE 76 IU/L (42-121); ALT ALANINE AMINOTRANSFERASE 14 IU/L (10-60); AST ASPARTATE AMINOTRANSFERASE 19 IU/L (10-42); BILIRUBIN,TOTAL 0.6 mg/dL (0.2-1.0); BUN - BLOOD UREA NITROGEN 18 mg/dL (6-20); CALCIUM 9.5 mg/dL (8.5-10.3); CARBON DIOXIDE - CO2 27 mmol/L (21-32); CHLORIDE 106 mmol/L (101-111); CREATININE 0.9 mg/dL (0.6-1.3); GFR - MDRD 86 (>89); GLUCOSE 126 mg/dL (74-104); POTASSIUM 4.2 mmol/L (3.5-4.5); SODIUM 138 mmol/L (135-145); TOTAL PROTEIN 6.9 g/dL (6.4-8.9)
== END 2023-06-28 09:07 | disposition home or self-care (01) ==
LOC: LAB.S 09:06
PROVIDERS: ATTEND Registered Nurse
DX: I10 Essential (primary) hypertension (principal); E11.9 Type 2 diabetes mellitus without complications; E78.5 Hyperlipidemia, unspecified; Z12.5 Encounter for screening for malignant neoplasm of prostate
CPT/HCPCS: 36415; 80053; 80061; 83036; 83721; 84153; 85025

== ENCOUNTER 2023-11-18 08:00 | Outpatient (CLI) | payer OTHER ==
--- NOTE | 2023-11-18 12:21 | XRAY Report ---
PROCEDURE: Foot 3+V LT INDICATIONS: LEFT FOOT SPRAIN TECHNIQUE: 3 views of the foot were acquired. COMPARISON: None. FINDINGS: Bones: No fractures or dislocations. Mild diffuse interphalangeal and first MTP joint degeneration. Plantar calcaneal enthesophyte. No suspicious bony lesions. Soft tissues: No tibiotalar joint effusion. Achilles tendon appears normal. Atherosclerotic vascul ar calcifications. IMPRESSION: No acute bony abnormality. If pain persists with conservative management, consider repeat x-ray in 10 -14 days or cross-sectional imaging. Reviewed by: Edson Mejia MD on 11/18/2023 12:19 PM PDT Approved by: Edson Mejia MD on 11/18/2023 12:19 PM PDT Station ID: [id number]
== END 2023-11-18 23:59 | disposition home or self-care (01) ==
LOC: DI.S 08:00
PROVIDERS: ATTEND Physician Assistant Medical
DX: S93.692A Other sprain of left foot, initial encounter (principal)

== ENCOUNTER 2023-12-05 08:00 | Outpatient (CLI) | payer OTHER ==
--- NOTE | 2023-12-07 13:24 | XRAY Report ---
PROCEDURE: Foot 3+V LT INDICATIONS: SPRAIN OF LEFT FOOT TECHNIQUE: 3 views of the foot were acquired. COMPARISON: Prior foot series dated 11/18/2023. FINDINGS: Bones: No fractures or dislocations. No suspicious bony lesions. Pes planus alignment, with weight bearing. Background osteophytic changes redemonstrated. Calcaneal enthesopathy. Soft tissues: No tibiotalar joint effusion. Achilles tendon appears normal. IMPRESSION: No acute or healing fracture seen. If pain persist with conservative management, consider CT or MRI f or further assessment. Reviewed by: REJI Mcdonough on 12/07/2023 1:23 PM PDT Approved by: Elisha Garcias MD on 12/07/2023 1:23 PM PDT Station ID: [id number]
== END 2023-12-05 23:59 | disposition home or self-care (01) ==
LOC: DI.S 08:00
PROVIDERS: ATTEND Emergency Medicine
DX: S93.692D Other sprain of left foot, subsequent encounter (principal); Y99.0 Civilian activity done for income or pay

== ENCOUNTER 2023-12-30 09:12 | Outpatient (CLI) | payer OTHER ==
[2023-12-30 14:57] LABS: BASOPHILS % (AUTO) 0.9 %; EOSINOPHILS # (AUTO) 0.2 10^3/uL (0.0-0.7); HCT - HEMATOCRIT 44.3 % (42.0-52.0); HGB - HEMOGLOBIN 14.2 g/dL (14.0-18.0); LYMPHOCYTES # (AUTO) 1.4 10^3/uL (1.5-3.5); LYMPHOCYTES % (AUTO) 30.9 %; MEAN CORPUSCULAR HEMOGLOBIN 28.6 pg (27.0-31.0); MEAN CORPUSCULAR HGB CONC 32.1 g/dL (32.0-36.0); MEAN CORPUSCULAR VOLUME 89.3 fL (80.0-94.0); MEAN PLATELET VOLUME 9.8 fL (7.4-11.4); MONOCYTES # (AUTO) 0.4 10^3/uL (0.0-1.0); MONOCYTES % (AUTO) 8.4 %; NEUTROPHILS # (AUTO) 2.5 10^3/uL (1.5-6.6); NEUTROPHILS % (AUTO) 55.4 %; PLT - PLATELET COUNT 258 10^3/uL (130-450); RED BLOOD COUNT 4.96 10^6/uL (4.70-6.10); RED CELL DISTRIBUTION WIDTH 13.7 % (12.0-15.0); WHITE BLOOD COUNT 4.5 x10^3/uL (4.8-10.8)
[2023-12-30 15:30] LABS: ALBUMIN 4.5 g/dL (3.2-5.5); ALBUMIN/GLOBULIN RATIO 1.8 (1.0-2.2); ALKALINE PHOSPHATASE 65 IU/L (42-121); ALT ALANINE AMINOTRANSFERASE 12 IU/L (10-60); AST ASPARTATE AMINOTRANSFERASE 17 IU/L (10-42); BILIRUBIN,TOTAL 0.8 mg/dL (0.2-1.0); BUN - BLOOD UREA NITROGEN 18 mg/dL (6-20); CALCIUM 9.8 mg/dL (8.5-10.3); CARBON DIOXIDE - CO2 26 mmol/L (21-32); CHLORIDE 107 mmol/L (101-111); CHOLESTEROL 216 mg/dL; CREATININE 0.8 mg/dL (0.6-1.3); GFR - MDRD 98 (>89); GLUCOSE 102 mg/dL (74-104); HDL CHOLESTEROL 54 mg/dL; LDL CHOLESTEROL,CALCULATED 147 mg/dL; LDL/HDL RATIO 2.7 (<3.6); POTASSIUM 4.1 mmol/L (3.5-4.5); SODIUM 139 mmol/L (135-145); TRIGLYCERIDES 74 mg/dL; VLDL CHOLESTEROL 15 mg/dL
[2023-12-30 20:26] LABS: ESTIMATED AVERAGE GLUCOSE 123 mg/dL (70-100); HEMOGLOBIN A1c% 5.9 % (4.27-6.07)
== END 2023-12-30 09:13 | disposition home or self-care (01) ==
LOC: LAB.S 09:12
PROVIDERS: ATTEND Registered Nurse
DX: I10 Essential (primary) hypertension (principal); E11.9 Type 2 diabetes mellitus without complications; E78.5 Hyperlipidemia, unspecified; Z12.5 Encounter for screening for malignant neoplasm of prostate
CPT/HCPCS: 36415; 80053; 80061; 83036; 83721; 84153; 85025